=== PATIENT | male | born 2000 | race Caucasian/White ===

== ENCOUNTER 2020-11-10 17:03 | Emergency (ER) | payer BC, SELFPAY ==
[2020-11-10 17:03] VITALS: BP 137/103; PULSE 66; RESP 14; TEMP 37.1; O2SAT 99; BMI 24.9
[2020-11-10 18:55] VITALS: BP 117/81; PULSE 69; RESP 14; O2SAT 99
[2020-11-10] MEDS: SUMAtriptan 6 MG/0.5 ML Vial SC (19:16)
[2020-11-10 20:14] VITALS: BP 122/74; PULSE 82; RESP 14; O2SAT 100
--- NOTE | 2020-11-10 20:14 | EX.ED.VIS.HA ---
HPI History of Present Illness Chief Complaint: Headache Narrative Narrative: Patient presenting for evaluation secondary to headache. Patient has an underlying history of migraines. He states that over the course the last 4 days he has been dealing with a persistent migraine. Somewhat atypical as it is a more central headache rather than a unilateral headache around his eye socket. This been associated with phonophobia. He denies nausea vomiting. He denies any recent head injuries fevers neck stiffness or abnormal skin rashes. Has been trying [id number] remedies and it did not seem to alleviate this. He is does not currently have any prescription medications at home for this. Review of systems otherwise negative. [facility] Medical History Anxiety Depression Migraines Substance abuse Allergy/AdvReac Type Severity Reaction Status Date / Time amoxicillin [Amoxicillin] Allergy Rash Verified 11/10/20 17:05 Social History Smoking Status: Never smoker ROS ROS ED Constitutional Constitutional ED: Denies chills, fever(s), sweats or weight loss Eyes Eyes: Denies blurry vision, change in vision, diplopia or photophobia ENT ENT ED: Denies ear pain, neck pain, rhinorrhea or sore throat Cardiovascular Cardiovascular: Denies chest pain Respiratory/Chest Respiratory/Chest: Denies cough or dyspnea Gastrointestinal Gastrointestinal: Denies abdominal pain, nausea or vomiting Musculoskeletal Musculoskeletal: Denies arthralgias, myalgias or neck pain Integumentary Reports other Details: No petechia ; Denies rash Neurologic Neurologic: Reports headache(s); Denies paresthesias or weakness Psychiatric Psychiatric: Reports other Details: No history of IV drug abuse ; Denies depression Hematologic/Lymphatic Hematologic/Lymphatic: Denies easy bleeding or easy bruising Allergic/Immunologic Allergic/Immunologic ED: Reports other Details: No immunosuppression EXAM Physical Exam Const Vital Signs: 11/10/20 17:03 11/10/20 18:55 11/10/20 20:14 Temperature 98.7 F Temperature Source Temporal Pulse Rate 66 69 82 Respiratory Rate 14 14 14 Blood Pressure 137/103 H 117/81 H 122/74 H Blood Pressure Mean 114 93 90 Pulse Ox 99 99 100 Oxygen Delivery Method Room Air Room Air Room Air Positive well nourished and well developed General Appearance ED: well developed and NAD HEENT Reports normocephalic HEENT Narrative: No mastoid tenderness atraumatic; Negative for temporal artery tenderness or vesicular rash Face and Sinus: Negative for sinus tenderness Eyes PERRL and EOMs intact bilaterally Direct Ophthalmoscopy: No papilledema and No retinal abnormality Neck no lymphadenopathy, supple and no meningeal signs Resp normal respiratory effort and clear to auscultation bilaterally Cardio regular rate, regular rhythm, no murmurs and peripheral pulses 2+ throughout GI non-tender and non-distended Palpation: soft Extremity normal to inspection and full ROM Neuro oriented x3, CN's II-XII intact bilaterally and no sensory deficits noted Sensorium / Orientation: awake and alert Meningeal Signs: no meningeal signs Speech: speech normal Motor Exam: strength 5/5 throughout Psych mental status grossly normal Skin General Skin Exam: Negative for petechiae Lesions: no lesions Rashes: no rashes MDM MDM MDM Narrative Medical decision making narrative: Patient presented with migraine headache. Patient was given a dose of Imitrex and had almost complete resolution of his headache on repeat evaluation at 1999. Although the patient's pain is somewhat atypical, he does not have any red flag signs or symptoms that would indicate need for imaging or further work-up. Patient was discharged in improved condition. Discharge Plan Triage Chief Complaint: Headache ED Provider: Fabian Gong Dx/Rx/DC Orders Clinical Impression: Headache, migraine Instructions: ED, Migraine (Classical) Primary Care Provider: Elijah John Referrals: Elijah John MD [Primary Care Provider] - 3-5 Days Disposition Disposition: Home, Self Care
== END 2020-11-10 20:27 | disposition home or self-care (01) ==
PROVIDERS: Emergency Provider Emergency Medicine; PCP Pediatrics
DX: G43.909 Migraine, unspecified, not intractable, without status migrainosus (principal)
CPT/HCPCS: 96372; 99281; 99282; J3030

== ENCOUNTER 2022-01-03 11:03 | Emergency (ER) | payer BC, SELFPAY ==
[2022-01-03 11:04] VITALS: BP 131/86; PULSE 100; RESP 18; TEMP 36.6; O2SAT 100; BMI 21.6
--- NOTE | 2022-01-03 11:55 | EX.ED.GENINJ ---
HPI History of Present Illness Chief Complaint: Head Injury Informant: patient Onset/Context/Timing Onset: Today Current Severity: Mild Maximum Severity: Mild Associated Symptoms Associated Symptoms: Negative for Parasthesias, Weakness, Loss of function, Inability to ambulate, Loss of consciousness or Amnesia Narrative Narrative: 21-year-old male was putting away trash outside of trash bin in a local restaurant when the door came back and hit him in the right side of his face. No LOC. No severe headache. No neck pain. He was not knocked down. Patient will be asked if this will be Worker's Comp. Prior similar symptoms: Yes Recent Illness/Hospitalization: No PFSH PFSH Medical History Anxiety Depression Migraines Substance abuse Home Medications NK 01/03/22 [History Last Taken Unknown] Allergy/AdvReac Type Severity Reaction Status Date / Time amoxicillin [Amoxicillin] Allergy Rash Verified 01/03/22 11:08 Social History Smoking Status: Current every day smoker tobacco type: cigarettes ROS ROS ED ROS Narrative Chronic nausea. Not new today. Review of Systems ROS Unobtainable: Denies due to encephalopathy Constitutional Constitutional ED: Denies chills or fever(s) Eyes Eyes: Denies blurry vision ENT ENT ED: Denies ear pain Cardiovascular Cardiovascular: Denies chest pain Respiratory/Chest Respiratory/Chest: Denies cough or dyspnea Gastrointestinal Gastrointestinal: Reports nausea; Denies abdominal pain, diarrhea or vomiting Genitourinary Genitourinary ED: Denies dysuria or hematuria Musculoskeletal Musculoskeletal: Denies arthralgias Integumentary Denies abscess Neurologic Neurologic: Denies headache(s) Psychiatric Psychiatric: Denies anxiety Endocrine Endocrinology: Denies cold intolerance Hematologic/Lymphatic Hematologic/Lymphatic: Denies easy bleeding Allergic/Immunologic Allergic/Immunologic ED: Denies mouth swelling or tongue swelling EXAM Physical Exam Narrative Exam Narrative: 21-year-old male no acute distress. Vital signs stable afebrile. H EENT exam pupils round react to light about 3 mm bilaterally. Extra motions are intact. He has a small contusion to his right cheek. There is no laceration. Nothing repair. No bony deformity. Dentition intact. Scalp unremarkable. C-spine nontender. Lungs are clear. Heart regular rhythm. Chest were nontender. Abdomen soft. Moving all 4 extremities. Nontender. Normal strength. Back nontender. Neurologic exam normal. GCS of 15. Awake alert and oriented. Const Vital Signs: 01/03/22 11:04 01/03/22 11:16 Temperature 97.9 F Temperature Source Temporal Pulse Rate 100 Respiratory Rate 18 Respiratory Effort Normal Respiratory Depth Normal Respiratory Pattern Normal Blood Pressure 131/86 H Blood Pressure Mean 101 Pulse Ox 100 Oxygen Delivery Method Room Air Positive well nourished and well developed; Negative for obese, cachectic, contractures or unkempt General Appearance ED: well developed and NAD; Negative for unkempt, cachectic or contractures Nutritional Appearance: Negative for cachectic or obese HEENT HEENT Narrative: Mild contusion right cheek. No bony deformity. trauma and tenderness; Negative for atraumatic Eyes PERRL and EOMs intact bilaterally General Eye ED: Negative for other Neck full ROM General: Negative for tenderness Chest Wall inspection of chest normal and palpation of chest normal Breast/Axilla Inspection: Negative for other Resp normal respiratory effort and clear to auscultation bilaterally Auscultation: Negative for rales, rhonchi or wheezes Cardio regular rhythm, S1 normal heart sound, S2 normal heart sound and no murmurs Jugular Venous Distention: Negative for other Palpation: Negative for palpable S3 Rate: regular rate Rhythm: Negative for abnormal rhythm GI normal to inspection, nondistended, normoactive bowel sounds Inspection: abdominal distention Auscultation: normoactive bowel sounds Palpation: soft; Negative for tender, guarding or rebound tenderness present Bladder / Kidney Exam: No other Back/Spine normal to inspection and no thoracic nor lumbar tenderness General Back: Negative for CVA tenderness Thoracic Spine / Upper Back: Negative for thoracic spinal tenderness Extremity normal to inspection and full ROM General Extremety ED: Negative for deformity or edema General Extremity: Negative for deformity or edema Neuro oriented x3, CN's II-XII intact bilaterally, moves all extremities, no focal motor deficits, no sensory deficits noted and gait normal Clarke Coma Scale: document GCS findings Spontaneous Obeys Commands Oriented 15 Sensorium / Orientation: alert, oriented to person, oriented to place and oriented to time; Negative for orientation impaired, lethargic or stuporous Motor Exam: strength 5/5 throughout; Negative for strength abnormal or muscle tone abnormal Psych mental status grossly normal and thought process normal Appearance: Negative for unkempt Attitude: No agitated Mood & Affect: Negative for depressed or anxious Skin no rashes or lesions noted and no wounds Skin Narrative: Contusion abrasion right cheek. General Skin Exam: Negative for other Rashes: No rashes noted Trauma: abrasion Wounds: wounds noted MDM MDM MDM Narrative Medical decision making narrative: Patient with mild right facial contusion. No LOC. Does not need any imaging. Tylenol for pain. Keep clean. Ice to the area. Discussed with pain and he did not want to make this Worker's Comp. Discharge Plan Triage Chief Complaint: Head Injury ED Provider: Karthik Wilkinson Dx/Rx/DC Orders Clinical Impression: Contusion of face Instructions: ED Facial Contusion Prescriptions: No Action NK Primary Care Provider: Elijah John Referrals: [facility] [place] [Group of Physicians] - 1 Week if not improving Elijah John MD [Primary Care Provider] - As Needed Activity Restrictions/Additional Instructions: Motrin and Tylenol for pain. Ice to your right cheek. Disposition Disposition: Home, Self Care
== END 2022-01-03 12:07 | disposition home or self-care (01) ==
PROVIDERS: Emergency Provider Emergency Medicine; PCP Pediatrics; Visit Provider Emergency Medicine
DX: S00.83XA Contusion of other part of head, initial encounter (principal); F17.210 Nicotine dependence, cigarettes, uncomplicated; W22.8XXA Striking against or struck by other objects, initial encounter
CPT/HCPCS: 99282

== ENCOUNTER 2022-02-28 22:55 | Emergency (ER) | payer BC, SELFPAY ==
[2022-02-28 22:55] VITALS: BP 137/86; PULSE 106; RESP 16; TEMP 37.1; O2SAT 98; BMI 22.3
--- NOTE | 2022-02-28 23:13 | EX.ED.VIS.PS ---
HPI HPI - Psych History of Present Illness Chief Complaint: Suicidal Informant: patient Onset/Context/Timing Onset: Today Context: Gradual Onset Timing: Continuous Worsened by: Situational factors Relieved by: Nothing Associated Symptoms Associated Symptoms - Psych: Positive for Depressed and Suicidal Thoughts; Negative for Visual Hallucinations or Auditory Hallucinations Specific plan (suicidal thought): Cutting self, shooting self Narrative Narrative: Patient presents with suicidal ideations that became worse tonight. Patient states his grandfather and his cat recently. Patient states he also lost his job within the last month. Patient states this all came to ahead tonight. Patient states he started cutting himself tonight. Patient cut himself on both eyes. Patient states that if he had access to a gun he would shoot himself. Patient does not currently see a psychiatrist. Patient states he has been on antidepressants in the past but felt that he was worse while he was taking those and he weaned himself off of his antidepressants. [facility] Medical History Anxiety Depression Migraines Substance abuse Home Medications NK 01/03/22 [History Last Taken Unknown] Allergy/AdvReac Type Severity Reaction Status Date / Time amoxicillin [Amoxicillin] Allergy Rash Verified 02/28/22 22:55 Surgical History no surgical history no surgical history Social History Smoking Status: Current every day smoker tobacco type: cigarettes ROS ROS ED Constitutional Constitutional ED: Denies chills or fever(s) Eyes Eyes: Denies blurry vision or change in vision ENT ENT ED: Denies rhinorrhea or sore throat Cardiovascular Cardiovascular: Denies chest pain or palpitations Respiratory/Chest Respiratory/Chest: Denies cough or dyspnea Gastrointestinal Gastrointestinal: Denies nausea or vomiting Genitourinary Genitourinary ED: Denies dysuria or hematuria Musculoskeletal Musculoskeletal: Denies back pain or neck pain Integumentary Denies abscess or rash Neurologic Neurologic: Reports headache(s); Denies weakness Psychiatric Psychiatric: Reports depression, suicidal ideation and suicidal thoughts Allergic/Immunologic Allergic/Immunologic ED: Denies mouth swelling or urticaria EXAM Physical Exam Const Vital Signs: 02/28/22 22:55 03/01/22 00:00 03/01/22 01:00 Temperature 98.8 F Temperature Source Temporal Pulse Rate 106 H Respiratory Rate 16 15 14 Blood Pressure 137/86 H Blood Pressure Mean 103 Pulse Ox 98 Oxygen Delivery Method Room Air Room Air Room Air 03/01/22 02:00 03/01/22 03:00 03/01/22 04:00 Temperature Temperature Source Pulse Rate 66 Respiratory Rate 18 18 15 Blood Pressure 124/75 H Blood Pressure Mean 91 Pulse Ox 98 Oxygen Delivery Method Room Air Room Air Room Air 03/01/22 05:00 Temperature Temperature Source Pulse Rate Respiratory Rate 19 H Blood Pressure Blood Pressure Mean Pulse Ox Oxygen Delivery Method Room Air Positive well nourished and well developed General Appearance ED: well developed HEENT normocephalic and atraumatic Neck supple and no JVD Resp normal respiratory effort and clear to auscultation bilaterally Cardio no murmurs Rate: regular rate Rhythm: regular rhythm GI non-tender and non-distended Auscultation: normoactive bowel sounds Palpation: soft Extremity normal to inspection General Extremety ED: Negative for edema or tenderness General Extremity: Negative for edema Neuro oriented x3, CN's II-XII intact bilaterally and no sensory deficits noted Sensorium / Orientation: alert Motor Exam: strength 5/5 throughout Psych mental status grossly normal Activity / Motor Behavior: appropriate eye contact Speech: minimal and soft Mood & Affect: depressed and flat affect Thought Content: suicidality, No homicidality and No hallucination(s) Skin Skin Narrative: There are parallel linear abrasions over the medial aspects of the thighs bilaterally, worse on the right. There is no active bleeding. There is no gapping of the wound margins. Trauma: abrasion MDM MDM MDM Narrative Medical decision making narrative: CBC was within normal limits. Basic metabolic profile was within normal limits. Serum alcohol level was less than 3. Urine tox screen was positive for cannabinoids. COVID-19 rapid antigen was obtained and was negative. Patient was given nicotine patch. Case was discussed with crisis. Patient is medically clear for psychiatric placement. I feel patient would benefit from inpatient treatment given his suicidal ideations. Care of the patient was turned over to the oncoming physician pending psychiatric placement. Lab Data Attestation: I reviewed the patient's lab results. Labs: Laboratory Results - last 24 hr 02/28/22 02/28/22 02/28/22 23:26 23:26 23:26 WBC 7.9 RBC 5.21 Hgb 16.2 Hct 47.2 MCV 90.6 MCH 31.1 MCHC 34.3 RDW Std Deviation 39.8 RDW Coeff of Alfonso 11.9 Plt Count 184 MPV 11.9 Immature Gran % (Auto) 0.400 Neut % (Auto) 57.3 Lymph % (Auto) 34.1 [place] % (Auto) 6.7 Eos % (Auto) 1.0 Baso % (Auto) 0.5 Absolute Neuts (auto) 4.5 Absolute Lymphs (auto) 2.69 Nucleated RBC % 0 Sodium 142 Potassium 3.6 Chloride 106 Carbon Dioxide 30.0 Anion Gap 6 BUN 13 Creatinine 1.09 Estim Creat Clear Calc 110.05 Est GFR (MDRD) Af Amer 110 Est GFR (MDRD) Non-Af 91 BUN/Creatinine Ratio 11.9 Glucose 111 H Calcium 9.3 Urine Opiates Screen Urine Methadone Screen Ur Barbiturates Screen Ur Phencyclidine Scrn Ur Amphetamines Screen MDMA (Ecstasy) Screen U Benzodiazepines Scrn Urine Cocaine Screen U Cannabinoids Screen Ur Drug Screen Comment Ethyl Alcohol < 3.0 02/28/22 23:33 WBC RBC Hgb Hct MCV MCH MCHC RDW Std Deviation RDW Coeff of Alfonso Plt Count MPV Immature Gran % (Auto) Neut % (Auto) Lymph % (Auto) [place] % (Auto) Eos % (Auto) Baso % (Auto) Absolute Neuts (auto) Absolute Lymphs (auto) Nucleated RBC % Sodium Potassium Chloride Carbon Dioxide Anion Gap BUN Creatinine Estim Creat Clear Calc Est GFR (MDRD) Af Amer Est GFR (MDRD) Non-Af BUN/Creatinine Ratio Glucose Calcium Urine Opiates Screen NEGATIVE Urine Methadone Screen NEGATIVE Ur Barbiturates Screen NEGATIVE Ur Phencyclidine Scrn NEGATIVE Ur Amphetamines Screen NEGATIVE MDMA (Ecstasy) Screen NEGATIVE U Benzodiazepines Scrn NEGATIVE Urine Cocaine Screen NEGATIVE U Cannabinoids Screen POSITIVE H Ur Drug Screen Comment Ethyl Alcohol Discharge Plan Triage Chief Complaint: Suicidal ED Provider: Pranav Jimenez Dx/Rx/DC Orders Clinical Impression: Depression, Suicidal ideations Prescriptions: No Action NK Primary Care Provider: Elijah John Referrals: Elijah John MD [Primary Care Provider] -
[2022-02-28 23:36] LABS: Absolute Lymphocyte Count 2.69 X10^3/uL (0.83-4.51); Absolute Neutrophil Count 4.5 X10^3/uL (2.0-7.7); Basophil# 0.04 X10^3/uL; Basophil% 0.5 % (0-1); Eosinophil# 0.08 X10^3/uL; Hematocrit 47.2 % (40-54); Hemoglobin 16.2 g/dL (13.0-16.5); Lymphocyte # 2.69 X10^3/ul (0.83-4.51); Lymphocyte % 34.1 % (19-41); Mean Corp Hgb Conc 34.3 g/dL (32-36); Mean Corpuscular Hgb 31.1 pg (27.0-32.0); Mean Corpuscular Volume 90.6 fL (80-94); Mean Platelet Vol. 11.9 fl (6.2-12.0); Monocyte# 0.53 X10^3/uL; Monocyte% 6.7 % (0-10); NRBC Flagged by Analyzer 0 % (0-5); Neutrophil # 4.52 X10^3/uL (2.7-7.7); Neutrophil % 57.3 % (47-70); Platelet Count 184 K/mm3 (150-450); RBC Distribution Width CV 11.9 % (11.6-14.6); RBC Distribution Width SD 39.8 fl (35.1-43.9); Red Blood Count 5.21 M/mm3 (4.6-6.2); White Blood Count 7.9 K/mm3 (4.4-11.0)
[2022-02-28 23:52] LABS: Alcohol, Blood (Medical)-Serum < 3.0 mg/dL
[2022-02-28 23:53] LABS: Anion Gap 6 (5-15); BUN 13 mg/dL (7-18); BUN/Creat Ratio 11.9 RATIO (10-20); Calcium,Total 9.3 mg/dL (8.5-10.1); Chloride 106 mmol/L (98-107); Creatinine, Serum 1.09 mg/dL (0.70-1.30); EST Glomerular Filtration Rate 91 mL/min (>60); Est Glom Filt Rate - Afr Amer 110 mL/min (>60); Estimated Creatinine Clearance 110.05 ml/min; Glucose 111 mg/dL (74-106); Potassium 3.6 mmol/L (3.5-5.1); Sodium Level 142 mmol/L (136-145)
[2022-03-01] VITALS (8 sets, daily range): BP systolic 124–132; BP diastolic 75–83; PULSE 66–92; RESP 14–19; TEMP 37.1; O2SAT 98–99
[2022-03-01 00:02] LABS: Amphetamine Urine VISTA NEGATIVE (<1000 ng/mL); Barbiturate Urine VISTA NEGATIVE (< 200 ng/mL); Benzodiazepine Urine VISTA NEGATIVE (< 200 ng/mL); Cocaine Urine VISTA NEGATIVE (< 300 ng/mL); Ecstacy Urine VISTA NEGATIVE (< 500 ng/mL); Methadone Urine VISTA NEGATIVE (< 300 ng/mL); PCP Urine VISTA NEGATIVE (< 25 ng/mL); THC Urine VISTA POSITIVE (< 50 ng/mL); Vista UDS pH Range 4
== END 2022-03-01 10:10 ==
LOC: ED 23:42
PROVIDERS: Emergency Provider Emergency Medicine; PCP Pediatrics; Visit Provider Emergency Medicine
DX: R45.851 Suicidal ideations (principal); F17.210 Nicotine dependence, cigarettes, uncomplicated; F32.A Depression, unspecified
CPT/HCPCS: 36415; 80048; 80307; 82077; 85025; 87811; 99285

== ENCOUNTER 2022-03-24 16:31 | Emergency (ER) | payer BC, SELFPAY ==
[2022-03-24 16:33] VITALS: BP 118/70; PULSE 90; RESP 16; TEMP 36.4; O2SAT 99; BMI 21.6
[2022-03-24 17:11] LABS: Absolute Lymphocyte Count 2.04 X10^3/uL (0.83-4.51); Absolute Neutrophil Count 4.4 X10^3/uL (2.0-7.7); Basophil# 0.02 X10^3/uL; Basophil% 0.3 % (0-1); Eosinophil# 0.09 X10^3/uL; Eosinophils% 1.3 % (0-5); Hematocrit 45.1 % (40-54); Hemoglobin 15.9 g/dL (13.0-16.5); Lymphocyte # 2.04 X10^3/ul (0.83-4.51); Lymphocyte % 28.7 % (19-41); Mean Corp Hgb Conc 35.3 g/dL (32-36); Mean Corpuscular Hgb 31.7 pg (27.0-32.0); Mean Corpuscular Volume 89.8 fL (80-94); Mean Platelet Vol. 12.3 fl (6.2-12.0); Monocyte# 0.52 X10^3/uL; Monocyte% 7.3 % (0-10); NRBC Flagged by Analyzer 0 % (0-5); Neutrophil # 4.41 X10^3/uL (2.7-7.7); Neutrophil % 62.1 % (47-70); Platelet Count 146 K/mm3 (150-450); RBC Distribution Width CV 12.2 % (11.6-14.6); RBC Distribution Width SD 39.5 fl (35.1-43.9); Red Blood Count 5.02 M/mm3 (4.6-6.2); White Blood Count 7.1 K/mm3 (4.4-11.0)
[2022-03-24 17:20] LABS: Anion Gap 3 (5-15); BUN 16 mg/dL (7-18); BUN/Creat Ratio 17.5 RATIO (10-20); Calcium,Total 8.8 mg/dL (8.5-10.1); Chloride 106 mmol/L (98-107); Creatinine, Serum 0.92 mg/dL (0.70-1.30); EST Glomerular Filtration Rate 111 mL/min (>60); Est Glom Filt Rate - Afr Amer 134 mL/min (>60); Estimated Creatinine Clearance 126.31 ml/min; Glucose 90 mg/dL (74-106); Potassium 4.2 mmol/L (3.5-5.1); Sodium Level 137 mmol/L (136-145)
--- NOTE | 2022-03-24 17:32 | EDS_ITS ---
HPI HPI - Psych History of Present Illness Chief Complaint: Suicidal Narrative Narrative: History anxiety, major depressive order, schizophrenia, ADHD presents for evaluation of increasing depression and suicidal ideation the past 2 days. Ad[facility] for 5 to 6 days. He started on medications. He states there is a list that he cannot recall currently have there are 6 medications. Increase anxiety attacks. He is increasing thoughts of cutting himself which he did a month ago. Supposed to see counseling center locally here soon however is not been able to get in yet. Occasional marijuana none recently. Alcohol once a month none recently. Patient expresses hearing voices and seeing shadows. He states he does have parents around however does not see his father occasionally see his mother. His older brother lives close to his mother. Does not appear to have much social support. He brought himself in here requesting admission and treatment. He is taking his medications. Prior similar symptoms: Yes PFSH PFSH Medical History Anxiety Depression Migraines Substance abuse Home Medications gabapentin 300 mg capsule 300 mg PO Q6H PRN PRN restless 03/24/22 [History Last Taken Unknown] guanfacine 1 mg tablet 1 mg PO DAILY 03/24/22 [History Last Taken Unknown] hydroxyzine pamoate 50 mg capsule 50 mg PO Q6H PRN PRN Anxiety 03/24/22 [History Last Taken Unknown] mirtazapine 15 mg tablet 15 mg PO DAILY 03/24/22 [History Last Taken Unknown] paliperidone 3 mg tablet,extended release 24 hr 3 mg PO DAILY 03/24/22 [History Last Taken Unknown] trazodone 50 mg tablet 50 mg PO DAILY 03/24/22 [History Last Taken Unknown] Allergy/AdvReac Type Severity Reaction Status Date / Time amoxicillin [Amoxicillin] Allergy Rash Verified 03/24/22 16:32 Social History Smoking Status: Current every day smoker tobacco type: cigarettes ROS ROS ED Constitutional Constitutional ED: Denies chills, fever(s) or sweats Eyes Eyes: Denies change in vision ENT ENT ED: Denies dysphagia or sore throat Cardiovascular Cardiovascular: Denies chest pain, leg edema, palpitations or racing heartbeat Respiratory/Chest Respiratory/Chest: Denies cough, dyspnea or dyspnea on exertion Gastrointestinal Gastrointestinal: Denies abdominal pain, diarrhea, nausea or vomiting Genitourinary Genitourinary ED: Denies dysuria, hematuria or urinary frequency Musculoskeletal Musculoskeletal: Denies back pain, extremity pain or neck pain Integumentary Denies rash or wounds Neurologic Neurologic: Denies headache(s), paresthesias or weakness Psychiatric Psychiatric: Reports depression and suicidal ideation EXAM Physical Exam Const Vital Signs: 03/24/22 16:33 03/24/22 22:12 Temperature 97.6 F L Temperature Source Temporal Pulse Rate 90 93 Respiratory Rate 16 18 Blood Pressure 118/70 132/80 H Blood Pressure Mean 86 97 Pulse Ox 99 100 Oxygen Delivery Method Room Air Room Air Positive well nourished and well developed General Appearance ED: well developed and NAD HEENT Reports moist mucous membranes normocephalic and atraumatic Eyes PERRL, EOMs intact bilaterally and conjunctivae normal General Eye ED: Yes normal appearance of both eyes Neck no lymphadenopathy and supple General: Negative for tenderness Chest Wall Chest: Negative for tenderness Resp normal respiratory effort and normal air movement Effort and Inspection: symmetric chest movement; Negative for respiratory distress Cardio regular rate, regular rhythm and no murmurs Peripheral Pulses: pulses 2+ throughout GI normal to inspection, nondistended, normoactive bowel sounds and non-tender Palpation: Negative for guarding or rebound tenderness present Back/Spine no CVA tenderness and no thoracic nor lumbar tenderness Extremity normal to inspection General Extremety ED: Negative for edema or tenderness General Extremity: Negative for edema Neuro oriented x3 and no sensory deficits noted Sensorium / Orientation: awake and alert Psych Psych Narrative: Flat affect, cooperative. Depression. Admits to suicidal ideations. Skin no rashes or lesions noted and no wounds MDM MDM MDM Narrative Medical decision making narrative: Patient cooperative increasing depression and suicidal ideations. Medical clearance labs obtained. Results poss for THC. Patient was given nicotine patch per request. He is cooperative. He is medically cleared. Will await crisis evaluation for disposition. 1999: Received call back from crisis who evaluated the patient. They agree he will require readmission. 2124: Patient accepted back to [place]. [place] slip filled out. Lab Data Attestation: I reviewed the patient's lab results. Labs: Laboratory Results - last 24 hr 03/24/22 03/24/22 03/24/22 16:50 16:50 16:50 WBC 7.1 RBC 5.02 Hgb 15.9 Hct 45.1 MCV 89.8 MCH 31.7 MCHC 35.3 RDW Std Deviation 39.5 RDW Coeff of Alfonso 12.2 Plt Count 146 L MPV 12.3 H Immature Gran % (Auto) 0.300 Neut % (Auto) 62.1 Lymph % (Auto) 28.7 [place] % (Auto) 7.3 Eos % (Auto) 1.3 Baso % (Auto) 0.3 Absolute Neuts (auto) 4.4 Absolute Lymphs (auto) 2.04 Nucleated RBC % 0 Sodium 137 Potassium 4.2 Chloride 106 Carbon Dioxide 28.0 Anion Gap 3 L BUN 16 Creatinine 0.92 Estim Creat Clear Calc 126.31 Est GFR (MDRD) Af Amer 134 Est GFR (MDRD) Non-Af 111 BUN/Creatinine Ratio 17.5 Glucose 90 Calcium 8.8 Urine Opiates Screen Urine Methadone Screen Ur Barbiturates Screen Ur Phencyclidine Scrn Ur Amphetamines Screen MDMA (Ecstasy) Screen U Benzodiazepines Scrn Urine Cocaine Screen U Cannabinoids Screen Ur Drug Screen Comment Ethyl Alcohol < 3.0 03/24/22 17:05 WBC RBC Hgb Hct MCV MCH MCHC RDW Std Deviation RDW Coeff of Alfonso Plt Count MPV Immature Gran % (Auto) Neut % (Auto) Lymph % (Auto) [place] % (Auto) Eos % (Auto) Baso % (Auto) Absolute Neuts (auto) Absolute Lymphs (auto) Nucleated RBC % Sodium Potassium Chloride Carbon Dioxide Anion Gap BUN Creatinine Estim Creat Clear Calc Est GFR (MDRD) Af Amer Est GFR (MDRD) Non-Af BUN/Creatinine Ratio Glucose Calcium Urine Opiates Screen NEGATIVE Urine Methadone Screen NEGATIVE Ur Barbiturates Screen NEGATIVE Ur Phencyclidine Scrn NEGATIVE Ur Amphetamines Screen NEGATIVE MDMA (Ecstasy) Screen NEGATIVE U Benzodiazepines Scrn NEGATIVE Urine Cocaine Screen NEGATIVE U Cannabinoids Screen POSITIVE H Ur Drug Screen Comment Ethyl Alcohol Discharge Plan Triage Chief Complaint: Suicidal ED Provider: Guy Morales Dx/Rx/DC Orders Clinical Impression: Depression, Suicidal ideation, Hx of schizophrenia, Tetrahydrocannabinol (THC) use disorder, mild, abuse Prescriptions: No Action trazodone 50 mg tablet 50 mg PO DAILY Rx Instructions: at bedtime hydroxyzine pamoate 50 mg capsule 50 mg PO Q6H PRN PRN (Reason: Anxiety) guanfacine 1 mg Tablet 1 mg PO DAILY gabapentin 300 mg capsule 300 mg PO Q6H PRN PRN (Reason: restless) mirtazapine 15 mg tablet 15 mg PO DAILY Rx Instructions: at bedtime paliperidone 3 mg tablet extended release 24hr 3 mg PO DAILY Rx Instructions: at bedtime Primary Care Provider: Elijah John Referrals: Elijah John MD [Primary Care Provider] - Disposition Disposition: Psychiatric Hospital or Unit
[2022-03-24 18:02] LABS: Alcohol, Blood (Medical)-Serum < 3.0 mg/dL
[2022-03-24 18:30] LABS: Amphetamine Urine VISTA NEGATIVE (<1000 ng/mL); Barbiturate Urine VISTA NEGATIVE (< 200 ng/mL); Benzodiazepine Urine VISTA NEGATIVE (< 200 ng/mL); Cocaine Urine VISTA NEGATIVE (< 300 ng/mL); Ecstacy Urine VISTA NEGATIVE (< 500 ng/mL); Methadone Urine VISTA NEGATIVE (< 300 ng/mL); PCP Urine VISTA NEGATIVE (< 25 ng/mL); THC Urine VISTA POSITIVE (< 50 ng/mL); Vista UDS pH Range 7
--- NOTE | 2022-03-24 18:43 | NURSING ---
CALLED CRISIS AT [phone]
[2022-03-24 22:12] VITALS: BP 132/80; PULSE 93; RESP 18; O2SAT 100
[2022-03-24] MEDS: traZODone 50 MG Tablet PO (23:54)
[2022-03-25] VITALS (8 sets, daily range): BP systolic 116; BP diastolic 79; PULSE 60; RESP 12–16; TEMP 36.3; O2SAT 99
[2022-03-25] MEDS: Mirtazapine 15 MG Tablet PO (00:03)
--- NOTE | 2022-03-25 00:23 | ED.RN ---
Night time medications given. Pt. updated they were accepted at [facility] but that transport would not be here to get him until AM. Pt. calm, cooperative, and thankful. Pt. attempting to sleep for the night. Sitter at bedside.
--- NOTE | 2022-03-25 07:16 | ED.RN ---
Attempted to call report to [facility], requested to call back in 15 minutes.
--- NOTE | 2022-03-25 07:54 | ED.RN ---
report given to [facility]
== END 2022-03-25 09:20 ==
PROVIDERS: Emergency Provider Emergency Medicine; PCP Pediatrics; Visit Provider Emergency Medicine
DX: R45.851 Suicidal ideations (principal); F20.9 Schizophrenia, unspecified; F17.210 Nicotine dependence, cigarettes, uncomplicated; F32.A Depression, unspecified; F41.9 Anxiety disorder, unspecified; F90.9 Attention-deficit hyperactivity disorder, unspecified type
CPT/HCPCS: 36415; 80048; 80307; 82077; 85025; 87811; 99285; A4216

== ENCOUNTER → 2023-06-05 | Outpatient (CLI) | payer BC, MEDICAID, SELFPAY ==
[2023-06-05 11:39] LABS: Amphetamine Urine VISTA NEGATIVE (<1000 ng/mL); Barbiturate Urine VISTA NEGATIVE (< 200 ng/mL); Benzodiazepine Urine VISTA NEGATIVE (< 200 ng/mL); Cocaine Urine VISTA NEGATIVE (< 300 ng/mL); Ecstacy Urine VISTA NEGATIVE (< 500 ng/mL); Methadone Urine VISTA NEGATIVE (< 300 ng/mL); PCP Urine VISTA NEGATIVE (< 25 ng/mL); THC Urine VISTA POSITIVE (< 50 ng/mL); Vista UDS pH Range 6
== END | disposition home or self-care (01) ==
LOC: LAB 09:20
PROVIDERS: PCP Pediatrics
DX: F19.10 Other psychoactive substance abuse, uncomplicated (principal)
CPT/HCPCS: 80307

== ENCOUNTER 2023-06-07 08:07 | Emergency (ER) | payer BC, MEDICAID, SELFPAY ==
[2023-06-07 08:08] VITALS: BP 124/85; PULSE 102; RESP 18; TEMP 36.6; O2SAT 99; BMI 20.5
--- NOTE | 2023-06-07 08:14 | EDS_ITS ---
HPI History of Present Illness Chief Complaint: Other, Pain/Inj Informant: patient Onset/Context/Timing Onset: Days (4) Context: Gradual Onset Timing: Continuous Quality: Sharp Location: Left mandible Worsened by: Palpation, talking Relieved by: Nothing Narrative Narrative: Patient presents with pain and swelling to his left jaw that has been getting worse over the past 4 days. Patient states he noted the swelling over the past 2 days. Patient describes his pain as sharp. Patient states it is over the angle of the mandible on the left. Patient states it is worse with palpation and worse with talking. Patient denies any fevers or chills. Patient denies any difficulty breathing or difficulty swallowing. Patient admits to some nausea but denies any vomiting. Patient is concerned that this could be mumps. Patient states he has had all of his routine vaccinations as a child. [facility] Medical History Anxiety Depression Migraines Substance abuse Home Medications gabapentin 300 mg capsule 300 mg PO Q6H PRN PRN restless 03/24/22 [History Last Taken Unknown] guanfacine 1 mg tablet 1 mg PO DAILY 03/24/22 [History Last Taken Unknown] hydroxyzine pamoate 50 mg capsule 50 mg PO Q6H PRN PRN Anxiety 03/24/22 [History Last Taken Unknown] mirtazapine 15 mg tablet 15 mg PO DAILY 03/24/22 [History Last Taken Unknown] paliperidone 3 mg tablet,extended release 24 hr 3 mg PO DAILY 03/24/22 [History Last Taken Unknown] trazodone 50 mg tablet 50 mg PO DAILY 03/24/22 [History Last Taken Unknown] Allergy/AdvReac Type Severity Reaction Status Date / Time amoxicillin [Amoxicillin] Allergy Rash Verified 06/07/23 08:08 Surgical History no surgical history no surgical history Social History (Updated 06/07/23 @ 08:[address] Pranav Jimenez DO) Smoking Status: Current every day smoker tobacco type: e-cigarettes ROS ROS ED Constitutional Constitutional ED: Denies chills or fever(s) Eyes Eyes: Denies blurry vision or change in vision ENT ENT ED: Denies rhinorrhea or sore throat Cardiovascular Cardiovascular: Denies chest pain or palpitations Respiratory/Chest Respiratory/Chest: Denies cough or dyspnea Gastrointestinal Gastrointestinal: Reports nausea; Denies vomiting Genitourinary Genitourinary ED: Denies dysuria or hematuria Musculoskeletal Musculoskeletal: Denies back pain or neck pain Integumentary Denies abscess or rash Neurologic Neurologic: Denies headache(s) or weakness Allergic/Immunologic Allergic/Immunologic ED: Denies mouth swelling or urticaria EXAM Physical Exam Const Vital Signs: 06/07/23 08:08 06/07/23 08:43 Temperature 97.9 F Temperature Source Temporal Pulse Rate 102 H Respiratory Rate 18 Respiratory Effort Normal Non-Labored Respiratory Pattern Normal Blood Pressure 124/85 H Blood Pressure Mean 98 Pulse Ox 99 Oxygen Delivery Method Room Air Positive well nourished and well developed General Appearance ED: well developed and NAD HEENT Reports moist mucous membranes HEENT Narrative: There is mild tenderness and edema over the angle of the mandible on the left. There is no erythema or warmth. There is no fluctuance noted. There are dental caries noted over the left lower molars. There is no gingival edema around the molar teeth. Neck supple and no JVD Resp normal respiratory effort and clear to auscultation bilaterally Cardio regular rate and regular rhythm GI non-tender and non-distended Palpation: soft Neuro oriented x3, CN's II-XII intact bilaterally and no sensory deficits noted Sensorium / Orientation: alert Psych mental status grossly normal MDM MDM MDM Narrative Medical decision making narrative: Differential diagnosis includes abscess, sialolithiasis, sialoadenitis, and viral infection. CBC will be obtained to assess for leukocytosis and anemia. Basic metabolic profile will be obtained to assess for electrolyte abnormality and renal function. COVID-19, influenza, and RSV PCR will be obtained to assess for viral infection. CT scan of the soft tissue neck will be obtained to assess for abscess and sialoadenitis. Lab Data Attestation: I reviewed the patient's lab results. Lab results narrative: CBC was reviewed and was within normal limits. Basic metabolic profile was reviewed and was within normal limits. COVID-19 PCR was reviewed and was negative. Influenza PCR was reviewed and was negative for influenza A and influenza B. RSV PCR was reviewed and was negative. Labs: Laboratory Results - last 24 hr 06/07/23 08:44 WBC 10.2 RBC 5.03 Hgb 15.3 Hct 45.6 MCV 90.7 MCH 30.4 MCHC 33.6 RDW Std Deviation 40.3 RDW Coeff of Alfonso 12.2 Plt Count 153 MPV 12.8 H Immature Gran % (Auto) 0.200 Neut % (Auto) 75.5 H Lymph % (Auto) 16.3 L Bremer % (Auto) 6.8 Eos % (Auto) 0.8 Baso % (Auto) 0.4 Absolute Neuts (auto) 7.7 Absolute Lymphs (auto) 1.66 Nucleated RBC % 0 Sodium 138 Potassium 4.6 Chloride 108 H Carbon Dioxide 27.0 Anion Gap 3 L BUN 12 Creatinine 1.13 Estim Creat Clear Calc 96.57 Est GFR (MDRD) Af Amer 104 Est GFR (MDRD) Non-Af 86 BUN/Creatinine Ratio 10.6 Glucose 94 Calcium 9.1 Radiography Diagnostic Testing: Clinical Impression(s) from Imaging Studies Soft Tissue Neck CT 06/07/23 08:32 IMPRESSION: 1. Diffuse subcutaneous edema of the neck without focal abscess. 2. 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 Recommend correlation with thyroid ultrasound. Electronically Signed: Paul Crawford MD at 9:26 EST , CT scan of the soft tissue neck was obtained. There is diffuse subcutaneous edema of the neck. There is no evidence of any abscess. There is a right thyroid cyst. This was interpreted by the radiologist was also independently reviewed by myself. Treatment and Re-Evaluation :: Patient was advised of his findings. Patient is feeling better on reevaluation. Patient was advised that this most likely a viral illness. Patient was instructed to follow-up with his primary care physician in 5 to 7 days. Patient was instructed to take Tylenol or ibuprofen as needed for pain. Patient was instructed to return if worse in any way. Patient understood and was agreeable with the plan. All questions were answered. Discharge Plan Triage Chief Complaint: Other, Pain/Inj ED Provider: Pranav Jimenez Dx/Rx/DC Orders Clinical Impression: Viral illness Instructions: ED Viral Syndrome (Adult) Prescriptions: No Action trazodone 50 mg tablet 50 mg PO DAILY Rx Instructions: at bedtime hydroxyzine pamoate 50 mg capsule 50 mg PO Q6H PRN PRN (Reason: Anxiety) guanfacine 1 mg Tablet 1 mg PO DAILY gabapentin 300 mg capsule 300 mg PO Q6H PRN PRN (Reason: restless) mirtazapine 15 mg tablet 15 mg PO DAILY Rx Instructions: at bedtime paliperidone 3 mg tablet extended release 24hr 3 mg PO DAILY Rx Instructions: at bedtime Primary Care Provider: Elijah John Referrals: Elijah John MD [Primary Care Provider] - 5-7 Days Disposition Disposition: Home, Self Care
--- NOTE | 2023-06-07 08:32 | CT_ITS ---
EXAM: CT NECK WITH INTRAVENOUS CONTRAST CLINICAL INDICATION: Neck swelling TECHNIQUE: Helically acquired images were obtained of the neck with intravenous contrast. This CT exam was performed using one or more of the following dose reduction techniques: automated exposure control, adjustment of the mA and/or kV according to patient size, and/or use of iterative reconstruction technique. CONTRAST: IV 75mL [id number] COMPARISON: No relevant prior studies available. FINDINGS: NASOPHARYNX: Normal. SUPRAHYOID NECK: Normal. Oropharynx, oral cavity, parapharyngeal space and retropharyngeal space are unremarkable. INFRAHYOID NECK: Normal. The larynx, hypopharynx and supraglottis are unremarkable. SUBMANDIBULAR/PAROTID GLANDS: Salivary glands are normal in size. THYROID: 1 cm low-density nodule within the right thyroid gland may represent colloid cyst. Recommend correlation with thyroid ultrasound. BONES/JOINTS: No suspicious lytic or blastic abnormality. SOFT TISSUES: Diffuse subcutaneous edema of the neck and visualized portions of the face. No discrete soft tissue fluid collection. VASCULATURE: No acute findings. LYMPH NODES: Normal. No lymphadenopathy. LUNG APICES: Unremarkable as visualized. CT/Soft Tissue Neck WITH Contrast IMPRESSION: 1. Diffuse subcutaneous edema of the neck without focal abscess. 2. 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 Recommend correlation with thyroid ultrasound. Electronically Signed: Paul Crawford MD at 9:26 EST ,
[2023-06-07 08:52] LABS: Absolute Lymphocyte Count 1.66 X10^3/uL (0.83-4.51); Absolute Neutrophil Count 7.7 X10^3/uL (2.0-7.7); Basophil# 0.04 X10^3/uL; Basophil% 0.4 % (0-1); Eosinophil# 0.08 X10^3/uL; Eosinophils% 0.8 % (0-5); Hematocrit 45.6 % (40-54); Hemoglobin 15.3 g/dL (13.0-16.5); Lymphocyte # 1.66 X10^3/ul (0.83-4.51); Lymphocyte % 16.3 % (19-41); Mean Corp Hgb Conc 33.6 g/dL (32-36); Mean Corpuscular Hgb 30.4 pg (27.0-32.0); Mean Corpuscular Volume 90.7 fL (80-94); Mean Platelet Vol. 12.8 fl (6.2-12.0); Monocyte# 0.69 X10^3/uL; Monocyte% 6.8 % (0-10); NRBC Flagged by Analyzer 0 % (0-5); Neutrophil % 75.5 % (47-70); Platelet Count 153 K/mm3 (150-450); RBC Distribution Width CV 12.2 % (11.6-14.6); RBC Distribution Width SD 40.3 fl (35.1-43.9); Red Blood Count 5.03 M/mm3 (4.6-6.2); White Blood Count 10.2 K/mm3 (4.4-11.0)
[2023-06-07 09:07] LABS: Anion Gap 3 (5-15); BUN 12 mg/dL (7-18); BUN/Creat Ratio 10.6 RATIO (10-20); Calcium,Total 9.1 mg/dL (8.5-10.1); Chloride 108 mmol/L (98-107); Creatinine, Serum 1.13 mg/dL (0.70-1.30); EST Glomerular Filtration Rate 86 mL/min (>60); Est Glom Filt Rate - Afr Amer 104 mL/min (>60); Estimated Creatinine Clearance 96.57 ml/min; Glucose 94 mg/dL (74-106); Potassium 4.6 mmol/L (3.5-5.1); Sodium Level 138 mmol/L (136-145)
[2023-06-07 10:48] VITALS: BP 126/81; PULSE 80; RESP 16; TEMP 36.6; O2SAT 98
== END 2023-06-07 10:49 | disposition home or self-care (01) ==
PROVIDERS: Emergency Provider Emergency Medicine; PCP Pediatrics; Visit Provider Emergency Medicine
DX: B34.9 Viral infection, unspecified (principal); F41.9 Anxiety disorder, unspecified; Z79.899 Other long term (current) drug therapy; F32.A Depression, unspecified; F17.290 Nicotine dependence, other tobacco product, uncomplicated
CPT/HCPCS: 70491; 80048; 85025; 87631; 99283; Q9967; A4216

== ENCOUNTER 2023-09-27 15:09 | Emergency (ER) | payer BC, MEDICAID, SELFPAY ==
[2023-09-27 15:10] VITALS: BP 129/82; PULSE 74; RESP 15; TEMP 36.7; O2SAT 100; BMI 21.6
--- NOTE | 2023-09-27 15:27 | EDS_ITS ---
HPI History of Present Illness Chief Complaint: Other, Pain/Inj Informant: patient Onset/Context/Timing Onset: Weeks (2.5) Context: Gradual Onset Timing: Waxes and wanes Quality: Throbbing Location: Right inguinal area Worsened by: Movement, working Relieved by: Gabapentin Narrative Narrative: Patient presents with right inguinal pain that has been getting worse over the past 2-1/2 weeks. Patient states it waxes and wanes. Patient states it is worse with certain movements and it is worse when he is at work. Patient states he is prescribed gabapentin which helps with the pain. Patient admits to occasional nausea when the pain becomes severe. Patient denies any vomiting. Patient denies any dysuria or hematuria. Patient denies any fevers or chills. Patient denies any diarrhea, constipation, melena, or hematochezia. [facility] Medical History Substance abuse Anxiety Depression Migraines Home Medications ?Medication ?Instructions ?Recorded ?Last Taken ?Type gabapentin 300 mg capsule 300 mg PO Q6H PRN PRN restless 03/24/22 Unknown History guanfacine 1 mg tablet 1 mg PO DAILY 03/24/22 Unknown History hydroxyzine pamoate 50 mg capsule 50 mg PO Q6H PRN PRN Anxiety 03/24/22 Unknown History mirtazapine 15 mg tablet 15 mg PO DAILY 03/24/22 Unknown History paliperidone 3 mg tablet,extended 3 mg PO DAILY 03/24/22 Unknown History release 24 hr trazodone 50 mg tablet 50 mg PO DAILY 03/24/22 Unknown History naproxen 500 mg tablet 500 mg PO BID PRN #20 tabs 09/27/23 Unknown Rx Allergy/AdvReac Type Severity Reaction Status Date / Time amoxicillin (Amoxicillin) Allergy Rash Verified 09/27/23 15:12 Surgical History no surgical history no surgical history Social History (Updated 09/27/23 @ 15:[address] Pranav Jimenez, ) Smoking Status: Current every day smoker tobacco type: e-cigarettes Electronic Cigarette Use: with nicotine alcohol intake: current details: Occasional substance use type: marijuana ROS ROS ED Constitutional Constitutional ED: Denies chills or fever(s) Eyes Eyes: Denies blurry vision or change in vision ENT ENT ED: Denies rhinorrhea or sore throat Cardiovascular Cardiovascular: Denies chest pain or palpitations Respiratory/Chest Respiratory/Chest: Denies cough or dyspnea Gastrointestinal Gastrointestinal: Reports nausea; Denies vomiting Genitourinary Genitourinary ED: Denies dysuria or hematuria Musculoskeletal Musculoskeletal: Denies back pain or neck pain Integumentary Denies abscess or rash Neurologic Neurologic: Reports headache(s); Denies weakness Allergic/Immunologic Allergic/Immunologic ED: Denies mouth swelling or urticaria EXAM Physical Exam Const Vital Signs: 09/27/23 15:10 Temperature 98.1 F Temperature Source Temporal Pulse Rate 74 Respiratory Rate 15 Blood Pressure 129/82 H Blood Pressure Mean 97 Pulse Ox 100 Oxygen Delivery Method Room Air Positive well nourished and well developed General Appearance ED: well developed and NAD HEENT Reports moist mucous membranes Neck supple and no JVD GI non-tender and non-distended Palpation: soft Narrative: There is tenderness along the right inguinal canal. There is hernia noted with Valsalva maneuver. It is easily reducible. There is no testicular masses or tenderness noted. There is no pain along the left inguinal canal. Neuro oriented x3, CN's II-XII intact bilaterally and no sensory deficits noted Sensorium / Orientation: alert Motor Exam: strength 5/5 throughout Psych mental status grossly normal MDM MDM MDM Narrative Medical decision making narrative: Patient was advised that this is likely a a right inguinal hernia. It is not incarcerated or strangulated. Patient was advised that this does not need to be fixed emergently. Patient was given a prescription for Naprosyn. Patient was given referral for general surgery. Patient was instructed to follow-up with general surgery in 7 to 10 days. Patient was instructed to return if worse in any way. Patient understood and was agreeable with the plan. All questions were answered. Discharge Plan Triage Chief Complaint: Other, Pain/Inj ED Provider: Pranav Jimenez Dx/Rx/DC Orders Clinical Impression: Hernia, inguinal, right, Nicotine use disorder Instructions: ED Hernia (Adult) Prescriptions: New naproxen 500 mg tablet 500 mg PO BID PRN Qty: 20 0RF No Action trazodone 50 mg tablet 50 mg PO DAILY Rx Instructions: at bedtime hydroxyzine pamoate 50 mg capsule 50 mg PO Q6H PRN PRN (Reason: Anxiety) guanfacine 1 mg Tablet 1 mg PO DAILY gabapentin 300 mg capsule 300 mg PO Q6H PRN PRN (Reason: restless) mirtazapine 15 mg tablet 15 mg PO DAILY Rx Instructions: at bedtime paliperidone 3 mg tablet extended release 24hr 3 mg PO DAILY Rx Instructions: at bedtime Primary Care Provider: Elijah John Referrals: Andrew Montoya MD [Med Staff - Active Staff] - 5-7 Days Elijah John MD [Primary Care Provider] - 5-7 Days Print Language: Kazakh Disposition Disposition: Home, Self Care
[2023-09-27 15:52] VITALS: BP 129/82; PULSE 74; RESP 15; TEMP 36.7; O2SAT 100
== END 2023-09-27 15:53 | disposition home or self-care (01) ==
PROVIDERS: Emergency Provider Emergency Medicine; PCP Pediatrics; Visit Provider Emergency Medicine
DX: K40.90 Unilateral inguinal hernia, without obstruction or gangrene, not specified as recurrent (principal); F41.9 Anxiety disorder, unspecified; Z79.899 Other long term (current) drug therapy; F17.290 Nicotine dependence, other tobacco product, uncomplicated
CPT/HCPCS: 99282